=== PATIENT | male | born 1995 | race Caucasian/White ===

== ENCOUNTER 2020-01-27 17:02 | Emergency (ER) | payer SELFPAY ==
[~2020-01-27] VITALS: Ht 167.6 cm; Wt 72.6 kg
[2020-01-27 17:33] VITALS: BP 137/83
--- NOTE | 2020-01-27 17:37 | NUR ---
CORKY TIJERINA, RETURNED TO LOBBY AWAITING BED IN ED. VSS.
[2020-01-27] MEDS ORDERED: LORazepam 0.5 MG TAB PO ONE (19:20)
--- NOTE | 2020-01-27 19:22 | NUR ---
PT TAKEN TO RAD VIA W/C
--- NOTE | 2020-01-27 20:05 | NUR ---
PT BLOOD PRESSURE AT 162/90, DOMINIQUE LACEY MADE AWARE. PT OK TO DISCHARGE WITH THIS BLOOD PRESSURE.
[2020-01-27 20:17] VITALS: BP 162/90
== END 2020-01-27 20:11 | disposition home or self-care (01) ==
LOC: MED 17:02
DX: F41.1 Generalized anxiety disorder (principal); R03.0 Elevated blood-pressure reading, without diagnosis of hypertension; Z63.4 Disappearance and death of family member
CPT/HCPCS: 71045; 93005; 99283